=== PATIENT | female | born 1995 | race African-American/Black ===

== ENCOUNTER 2017-02-18 14:25 | Emergency (ER) ==
[2017-02-18 14:29] VITALS: BP 114/76; TEMP 99.2; BMI 28.8
--- NOTE | 2017-02-18 14:54 | ED.PDOC ---
General ED Provider: Dr. SANTOS LERMA JR Chief Complaint: Nausea/Vomiting Stated Complaint: PATIENT C/O NAUSEA AND VOMITING AND DIARRHEA. STATES HAS SOME CRAMPING TO UPPER ABD. JUST BEFORE DIARRHEA[ End ]0700 99.2 99 20 99% 114/ 76 three other family memebers also ill all ate pizza- did not smell good cheese and spinach--discussed workup patient unwilling to try oral agents request injectrable prefer to defer any bloodwork for now- zofran given note medicaid will write phergan and zofran- concerned has six month old uncomfortable with thought of drowsiness Time Seen by Physician: 14:48 Mode of Arrival: Walk-In Information Source: Patient Exam Limitations: No limitations Nursing and Triage Documentation Reviewed and Agree: No Review of Systems - Review Of Systems Constitutional: Reports: Malaise, Weakness Eyes: Reports: No symptoms Ears, Nose, Mouth, Throat: Reports: No symptoms Respiratory: Reports: No symptoms Cardiac: Reports: No symptoms GI: Reports: Abdominal pain, Diarrhea, Nausea, Vomiting : Reports: No symptoms Musculoskeletal: Reports: No symptoms Skin: Reports: No symptoms Neurological: Reports: No symptoms Endocrine: Reports: No symptoms Hematologic/Lymphatic: Reports: No symptoms All Other Systems: Other Past Medical History - Past Medical History Previously Healthy: Yes Endocrine: Reports: None Cardiovascular: Reports: None Respiratory: Reports: None Hematological: Reports: None Gastrointestinal: Reports: None Genitourinary: Reports: None Neuro/Psych: Reports: None Musculoskeletal: Reports: None Cancer: Reports: None Last Menstrual Period: 01/23 - Surgical History General Surgical History: Reports: , Hernia Repair - Family History Family History: Reports: Other - Social History Smoking Status: Never smoker Hx Substance Use: No Alcohol Screening: None Physical Exam - Physical Exam Appearance: Well-appearing, Thin Pain Distress: Mild Eyes: TEDDY ENT: Ears normal Neck: Supple Respiratory: Airway patent, Breath sounds clear, Breath sounds equal, Respirations nonlabored Cardiovascular: RRR, Pulses normal, No rub, No murmur GI/: Soft, Tender (nonfocal) Musculoskeletal: Normal strength, ROM intact, No edema, No calf tenderness Skin: Warm, Dry, Normal color Neurological: Sensation intact, Motor intact, Reflexes intact, Cranial nerves intact, Alert, Oriented Psychiatric: Affect appropriate, Mood appropriate Critical Care Note - Critical Care Note Total Time (mins): 0 Course - Course Orders, Labs, Meds: Orders Category Date Time Status Ondansetron HCl/Pf [Zofran 4 mg/2 ml] MEDS 02/18/17 14:55 Discontinued 4 mg IM ONCE STA Medications Discontinued Medications Generic Name Dose Route Start Last Admin Trade Name Freq PRN Reason Stop Dose Admin Ondansetron HCl 4 mg 02/18/17 14:55 02/18/17 15:11 Zofran 4 Mg/2 Ml IM 02/18/17 14:56 4 mg ONCE STA Administration Vital Signs: Temp Pulse Resp BP Pulse Ox 02/18/17 14:26 99.2 F 99 H 20 114/76 99 Departure - Departure Time of Disposition: 14:56 Disposition: HOME SELF-CARE Discharge Problem: Gastroenteritis Instructions: Gastroenteritis (ED) Condition: Good Pt referred to PMD for follow-up: Yes Additional Instructions: clear liquids for 12 hours after vomiting zofran or phenergan for nausea phenergan can cause drowsiiness increase liquids by 6-8 cups daily for three days after lose stools do not work with food or cook for 12 hours after diarrhea Prescriptions: Ondansetron HCl [Zofran Tab] 4 mg PO QID PRN #12 tablet PRN Reason: Nausea / Vomiting Promethazine HCl [Phenergan Tab] 25 mg PO QID PRN #12 tablet PRN Reason: Nausea / Vomiting Allergies/Adverse Reactions: Allergies No Known Allergies Allergy (Unverified 02/18/17 14:31) Home Medications: Ambulatory Orders Ondansetron HCl [Zofran Tab] 4 mg PO QID PRN #12 tablet 02/18/17 Promethazine HCl [Phenergan Tab] 25 mg PO QID PRN #12 tablet 02/18/17
[2017-02-18] MEDS ORDERED: ZOFRAN 4 MG/2 ML IM STA (14:55)
== END 2017-02-18 16:41 | disposition home or self-care (01) ==
LOC: ED 14:25
DX: K52.9 Noninfective gastroenteritis and colitis, unspecified (principal)
CPT/HCPCS: 96372; 99283

== ENCOUNTER 2017-06-09 15:15 | Outpatient (CLI) ==
[2017-06-09 16:20] LABS: BASOPHILS % (AUTO) 0.7 % (0.0-3.0); EOSINOPHILS # (AUTO) 0.1 K/ul (0.0-0.7); EOSINOPHILS % (AUTO) 1.5 % (0.0-7.0); HEMATOCRIT 30.9 % (37.0-47.0); HEMOGLOBIN 10.3 g/dl (12.0-16.0); IMMATURE GRANULOCYTE % (AUTO) 0.3 % (0.0-5.0); LYMPHOCYTES # (AUTO) 2.4 K/uL (0.60-3.4); LYMPHOCYTES % (AUTO) 40.5 (10.0-50.0); MEAN CORPUSCULAR HEMOGLOBIN 26.5 pg (27.0-31.0); MEAN CORPUSCULAR HGB CONC 33.3 (31.8-35.4); MEAN CORPUSCULAR VOLUME 79.4 fl (81.0-99.0); MONOCYTES # (AUTO) 0.5 K/uL (0.4-2.0); MONOCYTES % (AUTO) 7.9 (0-10); NEUTROPHILS # (AUTO) 2.9 K/ul (2.0-6.9); NEUTROPHILS % (AUTO) 49.1; PLATELET COUNT 302 10^3/uL (140-440); RED BLOOD COUNT 3.89 10^6/ul (4.20-5.40); WHITE BLOOD COUNT 5.85 K/ul (4.6-10.2)
[2017-06-09 16:55] LABS: ALBUMIN 3.7 g/dL (3.4-5.0); ALBUMIN/GLOBULIN RATIO 0.86; BILIRUBIN,TOTAL 0.71 mg/dL (0.00-1.20); BUN/CREATININE RATIO 15.58; CALCIUM 9.7 mg/dL (8.2-10.2); CHOL/HDL RATIO 2.4 (4.5-5.5); CREATININE 0.77 mg/dL (0.60-1.30)
== END 2017-06-09 15:16 | disposition home or self-care (01) ==
LOC: LAB 15:15
PROVIDERS: ATTEND Emergency Medicine
DX: I10 Essential (primary) hypertension (principal); R42 Dizziness and giddiness
CPT/HCPCS: 36415; 80053; 80061; 84443; 85025

== ENCOUNTER 2017-06-16 16:02 | Outpatient (CLI) | END 2017-06-16 16:03 | disposition home or self-care (01) | LOC: LAB 16:02 | PROVIDERS: ATTEND Emergency Medicine | DX: D50.0 Iron deficiency anemia secondary to blood loss (chronic) (principal) | CPT/HCPCS: 36415 ==

== ENCOUNTER 2019-03-01 09:23 | Outpatient (CLI) ==
[2017-06-22 15:12] VITALS: BMI 28.8
--- NOTE | 2019-03-01 10:33 | US ---
EXAM: PELVIC ULTRASOUND COMPLETE HISTORY: Ovarian cyst FINDINGS: Ultrasound pelvis transvaginal. Transvaginal approach imaging was performed for improved resolution and anatomic definition. The uterus measured 9.7 x 3.8 x 5.0 centimeters. Myometrium was unremarkable. Endometrial stripe wa s symmetric and normal thickness at 0.48 centimeters. The right ovary measured 3.1 x 2.1 x 1.8 centimeters and the left ovary 2.5 x 1.4 x 1.3 centimeters. Ovaries demonstrated adequate blood flow. Several small bilateral ovarian follicles were identified , largest measuring about a centimeter. No ascites IMPRESSION: 1. Findings within normal limits sonographically.
== END 2019-03-01 09:24 | disposition home or self-care (01) ==
LOC: RAD 09:23
PROVIDERS: ATTEND Advanced Practice Midwife
DX: N83.292 Other ovarian cyst, left side (principal)